=== PATIENT | male | born 1995 | race Hispanic/Latino ===

== ENCOUNTER 2020-05-03 19:54 | Emergency (ER) | payer OTHER | END 2020-05-03 21:30 | LOC: EDH 19:54 → EDBD 19:54 → EDH 21:30 | DX: S06.0X0A Concussion without loss of consciousness, initial encounter (principal); S00.81XA Abrasion of other part of head, initial encounter; M25.531 Pain in right wrist; M25.532 Pain in left wrist; Z72.0 Tobacco use; V89.2XXA Person injured in unspecified motor-vehicle accident, traffic, initial encounter; Y93.89 Activity, other specified; Y92.89 Other specified places as the place of occurrence of the external cause; Y99.8 Other external cause status | CPT/HCPCS: 70450 ==